=== PATIENT | female | born 1940 | race Caucasian/White ===

== ENCOUNTER → 2016-06-26 | Outpatient (CLI) | payer MEDICARE, OTHER ==
--- NOTE | 2016-06-26 13:30 | WOMENS IMAGING REPORT ---
EXAM DESCRIPTION: BONE DENSITY HIP/SPINE COMPLETED DATE/TIME: 06/26/2016 10:13 am REASON FOR STUDY: Z78.0 Z13.820 ENCOUNTER FOR SCREENING FOR OSTEOPOROSIS Z78.0 ASYMPTOMATIC MENOPA USAL STATE COMPARISON: None. TECHNIQUE: Dual-Energy X-ray Absorptiometry (DEXA) of the AP Spine and Hip. LIMITATIONS: None. FINDINGS: LUMBAR SPINE: The bone mineral density (BMD) measured from L1-L4 in the AP projection correlates with a T-score of 2.7, which is normal as defined by the World Health Organization. HIP: The bone mineral density (BMD) measured in the left hip correlates with a T-score of -1.3, which is o steopenia as defined by the World Health Organization. COMMENT: The World Health Organization defines low BMD as follows: T-score: Normal: Greater than -1.0 Osteopenia: Between -1.0 and -2.5 Osteoporosis: Less than -2.5 without fractures Established osteoporosis: Less than -2.5 with fractures In general, you may wish to consider: Diagnosis Treatment Follow-up DEXA Normal BMD Prevention 2-3 years Osteopenia Prevention/Therapy 1-2 years Osteoporosis Therapy Yearly TECHNICAL DOCUMENTATION: JOB ID: [id number] [employer]- All Rights Reserved
== END ==
LOC: WI 09:40
PROVIDERS: ATTEND Family Medicine
DX: Z78.0 Asymptomatic menopausal state (principal); M85.88 Other specified disorders of bone density and structure, other site
CPT/HCPCS: 77080

== ENCOUNTER → 2016-08-06 | Outpatient (CLI) | payer OTHER | LOC: RAD 12:54 | PROVIDERS: ATTEND Physician Assistant Medical | DX: Z87.891 Personal history of nicotine dependence (principal) | CPT/HCPCS: G0297 ==

== ENCOUNTER 2017-05-04 15:56 | Emergency (ER) | payer OTHER ==
--- NOTE | 2017-05-04 17:00 | ER Document Report ---
ED Medical Screen (RME) - General Chief Complaint: Diarrhea Stated Complaint: DIARRHEA Time Seen by Provider: 05/04/17 16:54 Mode of Arrival: Wheelchair Information source: Patient, Relative Notes: Patient states that she has had diarrhea and low back pain with decreased appetite for the past 4 days. Patient states she has a history of arthritis and had been on a long-acting pain medication but wanted to take control of her life so she stopped the medication abruptly 5 days ago. Patient additionally reports a 10 pound weight loss over the past week. Patient states that she did not wean herself from this medication nor did she switch to a different narcotic medicine. TRAVEL OUTSIDE OF THE [place] IN LAST 30 DAYS: No - Related Data Allergies/Adverse Reactions: morphine Allergy (Verified 05/04/17 16:15) rofecoxib [From Vioxx] Allergy (Verified 05/04/17 16:15) Past Medical History Neurological Medical History: Reports: Hx Migraine Renal/ Medical History: Denies: Hx Peritoneal Dialysis Musculoskeltal Medical History: Reports Hx Arthritis Past Surgical History: Reports: Hx Section, Hx Orthopedic Surgery Physical Exam - Vital signs Vitals: Temp Pulse Resp BP Pulse Ox 97.4 F 75 18 184/106 H 100 05/04/17 16:13 05/04/17 16:13 05/04/17 16:13 05/04/17 16:13 05/04/17 16:13 - Back Back: CVA tenderness Course - Vital Signs Vital signs: Temp Pulse Resp BP Pulse Ox 97.4 F 75 18 184/106 H 100 05/04/17 16:13 05/04/17 16:13 05/04/17 16:13 05/04/17 16:13 05/04/17 16:13
[2017-05-04 17:58] LABS: ABSOLUTE BASOPHILS # (AUTO) 0.1 10^3/uL (0.0-0.2); ABSOLUTE EOSINOPHILS # (AUTO) 0.1 10^3/uL (0.0-0.6); ABSOLUTE LYMPHOCYTES (AUTO) 3.1 10^3/uL (0.5-4.7); ABSOLUTE MONOCYTES (AUTO) 0.8 10^3/uL (0.1-1.4); ABSOLUTE NEUT (AUTO) 4.6 10^3/uL (1.7-8.2); BASOPHILS % (AUTO) 0.8 % (0-2); EOSINOPHILS % (AUTO) 1.2 % (0-6); HEMATOCRIT 40.4 % (36.0-47.0); HEMOGLOBIN 13.9 g/dL (12.0-15.5); HGB HCT DIFFERENCE 1.3; LYMPHOCYTES % (AUTO) 35.8 % (13-45); MEAN CORPUSCULAR HEMOGLOBIN 31.1 pg (27.0-33.4); MEAN CORPUSCULAR HGB CONC 34.4 g/dL (32.0-36.0); MEAN CORPUSCULAR VOLUME 90 fl (80-97); RED BLOOD COUNT 4.47 10^6/uL (3.72-5.28); RED CELL DISTRIBUTION WIDTH 12.2 % (11.5-14.0); SEGMENTED NEUTROPHILS % (AUTO) 53.2 % (42-78); WHITE BLOOD COUNT 8.6 10^3/uL (4.0-10.5)
[2017-05-04 18:03] LABS: APPEARANCE,URINE SLIGHTLY-CLOUDY; BILIRUBIN,URINE NEGATIVE (NEGATIVE); GLUCOSE, URINE NEGATIVE (NEGATIVE); KETONES,URINE 80 mg/dL (NEGATIVE); LEUKOCYTE ESTERASE,URINE TRACE (NEGATIVE); NITRITE,URINE NEGATIVE (NEGATIVE); PROTEIN,URINE NEGATIVE (NEGATIVE); URINE SPECIFIC GRAVITY 1.019; UROBILINOGEN,URINE NEGATIVE mg/dL (<2.0)
[2017-05-04 18:32] LABS: ALANINE AMINOTRANSFERASE 39 U/L (9-52); ALBUMIN 5.1 g/dL (3.5-5.0); ALKALINE PHOSPHATASE 98 U/L (38-126); ANION GAP 17 (5-19); ASPARTATE AMINO TRANSFERASE 27 U/L (14-36); BILIRUBIN,DIRECT 0.4 mg/dL (0.0-0.4); BILIRUBIN,TOTAL 0.9 mg/dL (0.2-1.3); BLOOD UREA NITROGEN 17 mg/dL (7-20); CALCIUM 10.3 mg/dL (8.4-10.2); CARBON DIOXIDE 23 mmol/L (22-30); CHLORIDE 102 mmol/L (98-107); CREATININE RESULT 0.61 mg/dL (0.52-1.25); GLUCOSE 94 mg/dL (75-110); POTASSIUM 3.8 mmol/L (3.6-5.0); SODIUM 142.4 mmol/L (137-145); TOTAL PROTEIN 8.1 g/dL (6.3-8.2)
--- NOTE | 2017-05-04 20:10 | ER Document Report ---
ED GI/ <HAYLEE SALCEDO - Last Filed: 05/04/17 20:13> - General Mode of Arrival: Wheelchair Information source: Patient TRAVEL OUTSIDE OF THE [place] IN LAST 30 DAYS: No <HILARY YOST - Last Filed: 05/04/17 22:03> - General Chief Complaint: Diarrhea Stated Complaint: DIARRHEA Time Seen by Provider: 05/04/17 16:54 Notes: Patient is a 31-year-old female who presents to the emergency department today with complaints of opiate withdrawal. Patient states she stopped taking Hysingla ER abruptly five days ago because she was tired of being on it. Patient has had diarrhea, abdominal cramping, and generalized weakness. (HILARY YOST) - Related Data Allergies/Adverse Reactions: morphine Allergy (Verified 05/04/17 16:15) rofecoxib [From Vioxx] Allergy (Verified 05/04/17 16:15) Past Medical History - General Information source: Patient, Relative - Social History Smoking Status: Unknown if Ever Smoked Cigarette use (# per day): No Frequency of alcohol use: None Drug Abuse: None Lives with: Family Family History: Reviewed & Not Pertinent Patient has suicidal ideation: No Patient has homicidal ideation: No Neurological Medical History: Reports: Hx Migraine Musculoskeltal Medical History: Reports Hx Arthritis Past Surgical History: Reports: Hx Section, Hx Orthopedic Surgery <HILARY YOST - Last Filed: 05/04/17 22:03> Review of Systems - Review of Systems Constitutional: See HPI, Weakness EENT: No symptoms reported Cardiovascular: No symptoms reported Respiratory: No symptoms reported Gastrointestinal: See HPI, Diarrhea, Other - abdominal cramping Genitourinary: No symptoms reported Female Genitourinary: No symptoms reported Musculoskeletal: No symptoms reported Skin: No symptoms reported Hematologic/Lymphatic: No symptoms reported Neurological/Psychological: No symptoms reported -: Yes All other systems reviewed and negative <HILARY YOST - Last Filed: 05/04/17 22:03> Physical Exam <HAYLEE SALCEDO - Last Filed: 05/04/17 20:13> <HILARY YOST - Last Filed: 05/04/17 22:03> - Vital signs Vitals: Temp Pulse Resp BP Pulse Ox 97.4 F 75 18 184/106 H 100 05/04/17 16:13 05/04/17 16:13 05/04/17 16:13 05/04/17 16:13 05/04/17 16:13 - Notes Notes: Physical Exam: General: Alert, appears well. HEENT: Normocephalic. Atraumatic. PERRL. Extraocular movements intact. Oropharynx clear. Neck: Supple. Non-tender. Respiratory: No respiratory distress. Clear and equal breath sounds bilaterally. Cardiovascular: Regular rate and rhythm. Abdominal: Normal Inspection. Non-tender. No distension. Normal Bowel Sounds. Back: Non-tender. No deformity or step off. Extremities: Moves all four extremities. Upper extremities: Normal inspection. Normal ROM. Lower extremities: Normal inspection. No edema. Normal ROM. Neurological: Normal cognition. AAOx4. Normal speech. Psychological: Normal affect. Normal Mood. Skin: Warm. Dry. Normal color. (HILARY YOST) Course - Laboratory Result Diagrams: 05/04/17 17:30 05/04/17 17:30 <HAYLEE SALCEDO - Last Filed: 05/04/17 20:13> - Laboratory Result Diagrams: 05/04/17 17:30 05/04/17 17:30 <HILARY YOST - Last Filed: 05/04/17 22:03> - Re-evaluation Re-evalutation: 05/04/17 20:16 Patient does have large ketones in urine. This would be consistent with her history of not being able to eat due to no appetite. We discussed at length drinking sodas, eating high calorie foods liquids and she asked about ice cream. She will try this at home along with some Zofran for nausea if needed. He would be advised that the diarrhea she has now may be due to the narcotic withdrawal as narcotics tend to cause constipation. If she continues to have these symptoms several days from now she should be seen by her primary care provider to workup the diarrhea. (HAYLEE SALCEDO) - Vital Signs Vital signs: Temp Pulse Resp BP Pulse Ox 97.4 F 74 18 187/79 H 98 05/04/17 16:13 05/04/17 20:47 05/04/17 20:47 05/04/17 20:47 05/04/17 20:47 - Laboratory Laboratory results interpreted by me: 05/04/17 05/04/17 17:30 17:30 Calcium 10.3 H Albumin 5.1 H Urine Ketones 80 H Urine Blood MODERATE H Ur Leukocyte Esterase TRACE H Discharge <HAYLEE SALCEDO - Last Filed: 05/04/17 20:13> <HILARY YOST - Last Filed: 05/04/17 22:03> - Discharge Clinical Impression: Narcotic withdrawal, Decreased appetite, Weight loss Diarrhea Qualifiers: Diarrhea type: unspecified type Qualified Code(s): R19.7 - Diarrhea, unspecified Condition: Stable Disposition: HOME, SELF-CARE Additional Instructions: Your symptoms are most likely due to the abrupt withdrawal of narcotics in your system. You can improve how you feel by increasing calorie intake as we discussed. Take the medication for nausea as prescribed if needed to help. Follow up with a local medical doctor if not improving. RETURN TO THE EMERGENCY ROOM IF ANY NEW OR WORSENING SYMPTOMS. Prescriptions: Ondansetron HCl [Zofran 4 mg Tablet] 1 - 2 tab PO Q4H PRN #10 tablet PRN Reason: Scribe Attestation: 05/04/17 20:16 I personally performed the services described in the documentation, reviewed and edited the documentation which was dictated to the scribe in my presence, and it accurately records my words and actions. (HAYLEE SALCEDO) Scribe Documentation - Scribe Written by Saurabh:: Saurabh Ballard, 05/04/2017 acting as scribe for :: Janes <HILARY YOST - Last Filed: 05/04/17 22:03>
[2017-05-04] MEDS ORDERED: ONDANSETRON ODT 4 MG TAB (6 TAB/DSPK) PO PRN (20:18)
[2017-05-04 20:48] VITALS: BP 187/79
== END 2017-05-04 20:47 | disposition home or self-care (01) ==
LOC: ER 15:56
DX: F15.93 Other stimulant use, unspecified with withdrawal (principal); R63.0 Anorexia; M54.5 Low back pain; R19.7 Diarrhea, unspecified
CPT/HCPCS: 99284; 36415; 87086; 85025; 80053; 81001; A9270

== ENCOUNTER → 2020-05-01 | Day surgery (SDC) | payer OTHER ==
[~2020-05-01] MED LIST: LIDOCAINE 1%/EPINEPHRINE INJ 20 ML VIAL ONE; LIDOCAINE 2% INJ (20 MG/ML) 20 ML MDV ONE
== END ==
LOC: RAD 08:21
PROVIDERS: ATTEND Surgery
DX: D05.12 Intraductal carcinoma in situ of left breast (principal); R92.1 Mammographic calcification found on diagnostic imaging of breast; R92.2 Inconclusive mammogram; R92.0 Mammographic microcalcification found on diagnostic imaging of breast
CPT/HCPCS: 88305 ×2; 88342; 19081; 77065; J3490 ×2